=== PATIENT | female | born 1970 ===

== ENCOUNTER 2022-01-03 13:50 | Emergency (ER) | payer MEDICAID ==
[~2022-01-03] VITALS: Ht 160 cm; Wt 49.0 kg
[2022-01-03] MEDS ORDERED: CYCL10TA21 MT (15:47)
[2022-01-03] MEDS ORDERED: TRAM50TA3 MT (15:47)
[2022-01-03] MEDS ORDERED: HYDROCODONE/ACETAMINOPHEN 5/325MG TABLET PO ONE (16:00)
[2022-01-03] MEDS ORDERED: KETOROLAC 60MG/2ML VIAL IM ONE (16:00)
[2022-01-03 16:19] VITALS: BP 107/82
== END 2022-01-03 16:25 | disposition home or self-care (01) ==
LOC: ER 14:44
DX: M54.42 Lumbago with sciatica, left side (principal); M54.41 Lumbago with sciatica, right side; F41.9 Anxiety disorder, unspecified; I50.9 Heart failure, unspecified; F32.9 Major depressive disorder, single episode, unspecified; K21.9 Gastro-esophageal reflux disease without esophagitis; F20.9 Schizophrenia, unspecified; Z88.5 Allergy status to narcotic agent
CPT/HCPCS: 96372; 99283; J1885